=== PATIENT | male | born 1960 | race Caucasian/White ===

== ENCOUNTER 2017-01-30 17:03 | Emergency (ER) | payer MEDICARE, OTHER ==
[~2017-01-30 17:03] MED LIST: OMEP40CA2 PO; PARO20TA2 PO; PAXI40TA PO; PRAZ2 PO; PRAZ2CAP PO; QUET1TAB10 PO; QUET1TAB7 PO; QUET400XR PO; TRAZ50TA12 PO; VENL75XR PO; XANA2TAB2 PO
[2017-01-30 17:04] VITALS: BP 125/78; PULSE 78; RESP 24; TEMP 97.5; O2SAT 93
[2017-01-30 17:31] VITALS: BP 130/80; PULSE 81; PULSE 84; RESP 16; O2SAT 96; O2SAT 97
[2017-01-30] MEDS ORDERED: FENO160T PO (17:55)
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
[2017-01-30 18:35] LABS: AUTOMATED NEUTROPHIL # 4.2 TH/MM3 (1.8-7.7); BASOPHIL # 0.2 TH/MM3 (0-0.2); BASOPHIL % 1.2 % (0.0-2.0); EOSINOPHIL # 0.8 TH/MM3 (0-0.4); EOSINOPHIL % 6.1 % (0.0-4.0); HEMATOCRIT 47.7 % (39.0-51.0); LYMPH % 53.1 % (9.0-44.0); LYMPHOCYTE # 7.1 TH/MM3 (1.0-4.8); MEAN CELL VOLUME 89.5 FL (80.0-100.0); MEAN CORPUSCULAR HEMOGLOBIN 30.9 PG (27.0-34.0); MEAN CORPUSCULAR HGB CONC 34.5 % (32.0-36.0); MONO % 7.9 % (0.0-8.0); NEUT % 31.7 % (16.0-70.0); PLATELET COUNT 365 TH/MM3 (150-450); RED BLOOD COUNT 5.33 MIL/MM3 (4.50-5.90); RED CELL DISTRIBUTION WIDTH 14.8 % (11.6-17.2); WHITE BLOOD COUNT 13.4 TH/MM3 (4.0-11.0)
[2017-01-30 18:41] LABS: HEMO FLAGS AUTO DIFF
[2017-01-30 18:44] LABS: BLOOD, URINE NEG (NEG); COMMENT (UR) CULTURE INDICATED; CULTURE IF INDICATED CULTURE INDICATED; GLUCOSE,URINE NEG (NEG); KETONE, URINE NEG (NEG); MUCUS URINE FEW /lpf (OCC); NITRITE,URINE NEG (NEG); PH, URINE 5.5 (5.0-8.5); URINE COLOR YELLOW (YELLW/STRAW)
[2017-01-30 18:49] LABS: AMPHETAMINE, URINE NEG (NEG); BARBITURATES, URINE NEG (NEG); COCAINE, URINE NEG (NEG)
[2017-01-30 19:03] LABS: ANION GAP 9 MEQ/L (5-15)
[2017-01-30 19:05] LABS: EOSINOPHILS 1 % (0-4); NEUTROPHIL # MANUAL DIFF 4.3 TH/MM3 (1.8-7.7); POLYS (SEG NEUTROPHILS) 32 % (16-70); WBC DIFF SAMPLE 100
[2017-01-30 19:06] LABS: PLATELET ESTIMATE SMEAR NORMAL (NORMAL); PLATELET MORPHOLOGY NORMAL (NORMAL); SCAN/DIFF FINAL DIFF MANUAL
[2017-01-30 19:13] LABS: ALKALINE PHOSPHATASE 53 U/L (45-117); ALT (GPT) 19 U/L (12-78); AST (GOT) 19 U/L (15-37); BICARBONATE 25.4 MEQ/L (21.0-32.0); BLOOD UREA NITROGEN 13 MG/DL (7-18); CHLORIDE 102 MEQ/L (98-107); FREE T4 0.89 NG/DL (0.76-1.46); GLOMERULAR FILTRATION RATE 59 ML/MIN (>89); SODIUM (NA) 136 MEQ/L (136-145); TOTAL BILIRUBIN ADULT 0.4 MG/DL (0.2-1.0)
[2017-01-30] MEDS ORDERED: NITROFURANTOIN MONOHYD MACROCR 100 MG CAP PO ONE (19:15)
[2017-01-30 19:16] LABS: ACETAMINOPHEN LESS THAN 2.0 MCG/ML (10.0-30.0)
[2017-01-30] MEDS ORDERED: NITR100C4 PO (19:23)
[2017-01-30 22:50] VITALS: BP 128/69; PULSE 67; RESP 18
[2017-01-31 02:04] VITALS: BP 110/66; PULSE 59; RESP 18
[2017-01-31 05:56] VITALS: BP 110/70; PULSE 66; RESP 18; O2SAT 96
[2017-01-31 08:10] VITALS: BP 110/70; PULSE 66; RESP 18; TEMP 98.3; O2SAT 98
[2017-01-31 09:19] VITALS: BP 110/70; PULSE 66; RESP 18; TEMP 98.2; O2SAT 98
[2017-01-31 09:22] VITALS: BP 110/70; TEMP 97.2
== END 2017-01-31 09:46 | disposition short-term general hospital (02) ==
LOC: NEPD 17:03 → NEPJ 01-31 09:46
DX: N39.0 Urinary tract infection, site not specified (principal); R45.851 Suicidal ideations; Z79.899 Other long term (current) drug therapy
CPT/HCPCS: 80053; 80307; 81001; 84439; 84443; 85007; 85027; 87086; 99284

== ENCOUNTER 2017-02-13 16:14 | Emergency (ER) | payer OTHER ==
[~2017-02-13 16:14] MED LIST changes: +FENO160T PO; +NITR100C4 PO; -PARO20TA2 PO; -PRAZ2 PO; -QUET1TAB10 PO; -QUET1TAB7 PO; -VENL75XR PO
[2017-02-13 17:23] VITALS: BP 131/88; PULSE 98; RESP 16; O2SAT 96
[2017-02-13] MEDS ORDERED: LORazepam 2 MG/ML VIAL IM ONE (19:00)
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
[2017-02-13] MEDS ORDERED: PRAZOSIN HCL 2 MG CAP PO ONE (20:00)
[2017-02-13] MEDS ORDERED: traZODone HCL 50 MG TAB PO ONE (20:00)
[2017-02-13 20:59] LABS: AUTOMATED NEUTROPHIL # 5.5 TH/MM3 (1.8-7.7); BASOPHIL # 0.1 TH/MM3 (0-0.2); BASOPHIL % 0.6 % (0.0-2.0); EOSINOPHIL # 0.6 TH/MM3 (0-0.4); EOSINOPHIL % 4.5 % (0.0-4.0); HEMATOCRIT 48.3 % (39.0-51.0); LYMPHOCYTE # 5.6 TH/MM3 (1.0-4.8); MEAN CELL VOLUME 89.7 FL (80.0-100.0); MEAN CORPUSCULAR HEMOGLOBIN 30.3 PG (27.0-34.0); MEAN CORPUSCULAR HGB CONC 33.8 % (32.0-36.0); MONO % 9.8 % (0.0-8.0); NEUT % 42.1 % (16.0-70.0); PLATELET COUNT 361 TH/MM3 (150-450); RED BLOOD COUNT 5.38 MIL/MM3 (4.50-5.90); RED CELL DISTRIBUTION WIDTH 14.7 % (11.6-17.2); WHITE BLOOD COUNT 13.1 TH/MM3 (4.0-11.0)
[2017-02-13 21:04] LABS: HEMO FLAGS AUTO DIFF
[2017-02-13 21:16] LABS: AMPHETAMINE, URINE NEG (NEG); BARBITURATES, URINE NEG (NEG); COCAINE, URINE NEG (NEG)
[2017-02-13 21:23] LABS: EOSINOPHILS 4 % (0-4); NEUTROPHIL # MANUAL DIFF 5.4 TH/MM3 (1.8-7.7); PLATELET ESTIMATE SMEAR NORMAL (NORMAL); PLATELET MORPHOLOGY NORMAL (NORMAL); POLYS (SEG NEUTROPHILS) 41 % (16-70); SCAN/DIFF FINAL DIFF MANUAL; WBC DIFF SAMPLE 100
[2017-02-13 21:33] LABS: ANION GAP 6 MEQ/L (5-15); AST (GOT) 28 U/L (15-37); BICARBONATE 28.7 MEQ/L (21.0-32.0); BLOOD UREA NITROGEN 12 MG/DL (7-18); CHLORIDE 106 MEQ/L (98-107); GLOMERULAR FILTRATION RATE 65 ML/MIN (>89); POTASSIUM 4.4 MEQ/L (3.5-5.1); SODIUM (NA) 141 MEQ/L (136-145)
[2017-02-13 21:36] LABS: ALKALINE PHOSPHATASE 48 U/L (45-117); ALT (GPT) 25 U/L (12-78); TOTAL BILIRUBIN ADULT 0.3 MG/DL (0.2-1.0)
[2017-02-13 22:00] VITALS: BP 137/78; PULSE 64; RESP 18; TEMP 97.9; O2SAT 98
[2017-02-14 02:08] VITALS: BP 138/83; PULSE 58; RESP 18; TEMP 98.6; O2SAT 98
[2017-02-14 06:04] VITALS: BP 143/88; PULSE 60; RESP 17; O2SAT 98
[2017-02-14 09:59] VITALS: BP 143/88; PULSE 60; RESP 17; O2SAT 98
== END 2017-02-14 10:05 ==
LOC: NEDAMB 16:14 → NEPJ 02-14 10:05
DX: F43.12 Post-traumatic stress disorder, chronic (principal); F32.9 Major depressive disorder, single episode, unspecified; Z87.828 Personal history of other (healed) physical injury and trauma
CPT/HCPCS: 80053; 80307; 85007; 85027; 96372; 99284; J2060